=== PATIENT | female | born 1935 | race Caucasian/White ===

== ENCOUNTER → 2017-05-14 | Outpatient (CLI) | payer OTHER | END | disposition home or self-care (01) | LOC: CFH 14:11 | PROVIDERS: ATTEND Family Medicine | DX: M47.897 Other spondylosis, lumbosacral region (principal); M48.061 Spinal stenosis, lumbar region without neurogenic claudication; I70.0 Atherosclerosis of aorta | CPT/HCPCS: 72110 ==

== ENCOUNTER 2020-03-26 10:35 | Observation (INO) | payer MEDICARE, OTHER ==
[~2020-03-26] VITALS: Ht 157.5 cm; Wt 54.0 kg
[2020-03-26] MEDS ORDERED: SODIUM CHLORIDE FLUSH 10ML SYR IVF ONE (11:00)
--- NOTE | 2020-03-26 11:02 | NUR ---
Patient having IV start by RN
--- NOTE | 2020-03-26 11:32 | NUR ---
straight cathed meaghan walked to lab. piv est. as
--- NOTE | 2020-03-26 11:43 | NUR ---
yellow scattered bruising L shoulder/forearm. joseph notified. son sts thinks pt is falling at home. pt was also c/o neck pain. ctm. call [facility]. as
[2020-03-26 11:46] LABS: MEAN CORPUSCULAR HEMOGLOBIN 27.6 pg (27.0-34.8); MEAN CORPUSCULAR HGB CONC 32.2 g/dL (32.4-35.8); MEAN PLATELET VOLUME 7.7 fL (7.4-10.4); PLATELET COUNT 469 x10^3/uL (130-400); RED BLOOD COUNT 4.74 x10^6/uL (3.82-5.3)
[2020-03-26 11:50] LABS: MICROSCOPIC INDICATED
[2020-03-26 11:51] LABS: ALBUMIN 2.4 g/dL (3.4-5.0); ANION GAP 6 mmol/L (5-15); CALCIUM 8.9 mg/dL (8.5-10.1); CHLORIDE 96 mmol/L (98-107)
[2020-03-26 11:56] LABS: ALKALINE PHOSPHATASE 97 U/L (45-117); BILIRUBIN,TOTAL 0.5 mg/dL (0.2-1.0); CREATINE KINASE, TOTAL 19 U/L (26-192); CREATININE 0.76 mg/dL (0.55-1.02); TOTAL PROTEIN 6.9 g/dL (6.4-8.2); TROPONIN I < 0.015 ng/mL (0.000-0.045)
[2020-03-26 12:05] LABS: SALICYLATE LEVEL < 1.7 mg/dL (2.8-20.0)
[2020-03-26 12:09] LABS: INTERNATIONAL NORMALIZED RATIO 1.11 (0.93-1.1); PROTHROMBIN TIME 11.4 Seconds (9.6-11.5)
[2020-03-26 12:12] LABS: MD YES
[2020-03-26 12:13] LABS: BASOS#(MANUAL) 0.17 x10^3/uL (0-0.1); BASOS% (MANUAL) 1 % (0-1); LYMPH#(MANUAL) 1.98 x10^3/uL (1-3.4); LYMPHS% (MANUAL) 12 % (22-44); MONOS#(MANUAL) 1.82 x10^3/uL (0.3-2.7); MONOS% (MANUAL) 11 % (2-9); SEG#(MANUAL) 12.54 x10^3/uL (1.8-6.8); SEGS% (MANUAL) 76 % (42-75)
[2020-03-26 12:14] LABS: <PLATELET ESTIMATE> INCREASED; <PLT MORPHOLOGY> NORMAL PLT MORPH
[2020-03-26 12:18] LABS: ALANINE AMINOTRANSFERASE 11 U/L (12-78)
[2020-03-26 12:29] LABS: <RBC MORPHOLOGY> NORMAL
[2020-03-26] MEDS ORDERED: CEFTRIAXONE PMX 1GM/50ML 50 ML IVPB ONE (13:00)
--- NOTE | 2020-03-26 13:07 | NUR ---
pt tbadm. plan abx. [facility] normal. slight L eye droop comes and goes. as
[2020-03-26] MEDS ORDERED: CEFTRIAXONE PMX 1GM/50ML 50 ML ONE (13:15)
[2020-03-26] MEDS ORDERED: TRAZ-175 PO (13:23)
[2020-03-26] MEDS ORDERED: POTASSIUM CHLORIDE 20 MEQ TAB.ER.PRT ONE (13:57)
[2020-03-26] MEDS ORDERED: POTASSIUM CHLORIDE 20 MEQ TAB.ER.PRT PO ONE (14:00)
[2020-03-26] MEDS ORDERED: ONDANSETRON ODT 4 MG PO PRN (14:30)
[2020-03-26] MEDS ORDERED: POLYETHYLENE GLYCOL 17 GM PACKET PO PRN (14:30)
[2020-03-26] MEDS ORDERED: ONDANSETRON 2MG/ML, 2ML IVPush PRN (14:30)
[2020-03-26] MEDS ORDERED: ACETAMINOPHEN 325 MG TABLET PO PRN (14:30)
[2020-03-26] MEDS ORDERED: PLEASE ENTER WEIGHT MC SCH (15:00)
[2020-03-26 15:02] VITALS: BP 137/68
[2020-03-26] MEDS: POTASSIUM CHLORIDE 20 MEQ in LACTATED RINGERS 1,000 ML IV SCH (16:15)
[2020-03-26 19:45] VITALS: BP 143/63
[2020-03-26] MEDS: TRAZODONE 100MG TABLET PO SCH (19:50)
[2020-03-27 00:04] VITALS: BP 142/67
[2020-03-27] MEDS: POTASSIUM CHLORIDE 20 MEQ in LACTATED RINGERS 1,000 ML IV SCH (03:31)
[2020-03-27 05:15] LABS: MEAN CORPUSCULAR HEMOGLOBIN 27.8 pg (27.0-34.8); MEAN CORPUSCULAR HGB CONC 32.5 g/dL (32.4-35.8); MEAN PLATELET VOLUME 8.3 fL (7.4-10.4); PLATELET COUNT 405 x10^3/uL (130-400); RED BLOOD COUNT 4.23 x10^6/uL (3.82-5.3); RED CELL DISTRIBUTION WIDTH 13.9 % (9.6-15.2)
[2020-03-27 05:20] LABS: ALANINE AMINOTRANSFERASE 7 U/L (12-78); ANION GAP 4 mmol/L (5-15); CALCIUM 8.4 mg/dL (8.5-10.1); CHLORIDE 102 mmol/L (98-107); CREATININE 0.57 mg/dL (0.55-1.02)
[2020-03-27 05:23] LABS: ALKALINE PHOSPHATASE 82 U/L (45-117); BILIRUBIN,TOTAL 0.4 mg/dL (0.2-1.0); TOTAL PROTEIN 5.9 g/dL (6.4-8.2)
[2020-03-27 05:53] LABS: BASOPHILS # (AUTO) 0.07 x10^3/uL (0-0.1); BASOPHILS % (AUTO) 1 % (0-1); EOSINOPHILS # (AUTO) 0.14 x10^3/uL (0-0.4); EOSINOPHILS % (AUTO) 1 % (1-7); LYMPHOCYTES # (AUTO) 1.39 x10^3/uL (1-3.4); LYMPHOCYTES % (AUTO) 12 % (22-44); MD SCAN; MONOCYTES # (AUTO) 1.18 x10^3/uL (0.2-0.8); MONOCYTES % (AUTO) 10 % (2-9); NEUTROPHILS # (AUTO) 8.92 x10^3/uL (1.8-6.8); NEUTROPHILS % (AUTO) 76 % (42-75)
[2020-03-27 06:53] VITALS: BP 100/70
[2020-03-27] MEDS: SENNA/DOCUSATE TABLET PO SCH (07:56)
[2020-03-27] MEDS: HEPARIN 5,000 UNITS/ML, 1ML SQ SCH ×2 (07:57→20:02)
[2020-03-27] MEDS: SODIUM CHLORIDE 0.9% 1,000 ML IV SCH (07:57)
[2020-03-27] MEDS ORDERED: ENOXAPARIN 30 MG/0.3 ML SQ SCH (09:00)
[2020-03-27] MEDS: CEFTRIAXONE PMX 1GM/50ML 50 ML IV SCH (11:20)
[2020-03-27] MEDS: ACETAMINOPHEN 325 MG TABLET PO PRN (11:20)
[2020-03-27 13:06] VITALS: BP 145/62
[2020-03-27] MEDS ORDERED: CEFD300C37 PO (13:33)
[2020-03-27 19:29] VITALS: BP 122/70
[2020-03-27] MEDS: TRAZODONE 100MG TABLET PO SCH (20:04)
[2020-03-28 01:41] VITALS: BP 150/63
[2020-03-28] MEDS: SODIUM CHLORIDE 0.9% 1,000 ML IV SCH (02:58)
[2020-03-28 05:10] LABS: BASOPHILS % (AUTO) 1 % (0-1); EOSINOPHILS % (AUTO) 1 % (1-7); LYMPHOCYTES % (AUTO) 14 % (22-44); MEAN CORPUSCULAR HEMOGLOBIN 27.4 pg (27.0-34.8); MEAN CORPUSCULAR HGB CONC 32.7 g/dL (32.4-35.8); MONOCYTES % (AUTO) 8 % (2-9); NEUTROPHILS % (AUTO) 77 % (42-75); PLATELET COUNT 417 x10^3/uL (130-400); RED CELL DISTRIBUTION WIDTH 14.2 % (9.6-15.2)
[2020-03-28 05:13] LABS: ANION GAP 6 mmol/L (5-15); CALCIUM 8.4 mg/dL (8.5-10.1); CHLORIDE 102 mmol/L (98-107); CREATININE 0.57 mg/dL (0.55-1.02)
[2020-03-28 05:57] LABS: MD SCAN
[2020-03-28] MEDS: SENNA/DOCUSATE TABLET PO SCH (07:42)
[2020-03-28] MEDS: HEPARIN 5,000 UNITS/ML, 1ML SQ SCH (07:42)
[2020-03-28] MEDS: ACETAMINOPHEN 325 MG TABLET PO PRN (07:42)
[2020-03-28] MEDS: CEFTRIAXONE PMX 1GM/50ML 50 ML IV SCH (11:27)
[2020-03-28 13:19] VITALS: BP 116/57
== END 2020-03-28 18:45 ==
LOC: ED 14:06 → SUATTDRO 14:10 → INTOOBSV 14:27 → 3N 14:27
PROVIDERS: ADMIT Internal Medicine; ATTEND Internal Medicine
DX: A41.9 Sepsis, unspecified organism (principal); Z20.828 Contact with and (suspected) exposure to other viral communicable diseases; N39.0 Urinary tract infection, site not specified; E87.6 Hypokalemia; R41.82 Altered mental status, unspecified; D72.829 Elevated white blood cell count, unspecified; R53.81 Other malaise; M79.81 Nontraumatic hematoma of soft tissue; G93.41 Metabolic encephalopathy; I44.7 Left bundle-branch block, unspecified; E87.1 Hypo-osmolality and hyponatremia; D47.3 Essential (hemorrhagic) thrombocythemia; F17.210 Nicotine dependence, cigarettes, uncomplicated; Z79.899 Other long term (current) drug therapy; Z66 Do not resuscitate
CPT/HCPCS: 36415; 70450; 71045; 72125; 80048; 80053; 80307; 81001; 82140; 82550; 83605; 84484; 85025; 85610; 85730; 87040; 87086; 87635; 93005; 96361; 96365; 96366; 96367; 96368; 96372; 97163; 97166; 97750; 99285; G0378; J0696; J1644; J3480; J7030; J7120